=== PATIENT | female | born 1950 | race Two or more races ===

== ENCOUNTER → 2022-01-15 | Day surgery (SDC) | payer OTHER, MEDICAID ==
[~2022-01-15] VITALS: Ht 157.5 cm; Wt 106.1 kg
[~2022-01-15] MED LIST: ASPI1TAB20 PO; ATOR20TA PO; CANA100T PO; CHLO25TA2 PO; DOCU100T15 PO; FLUT100I IN; FURO20TA3 PO; FUROSEMIDE 20 MG/2 ML VIAL ONE; GLIP10TA9 PO; GLYCOPYRROLATE 0.2 MG/ML 1ML VIAL ONE; HYDR50TA15 PO; HYDROmorphone HCL 2 MG/ML VL IV PRN; IOHEXOL 300 MG/ML 100ML BOTTLE IJ ONE; LOSA-39 PO; METF-372 PO; METO25TA36 PO; METOCLOPRAMIDE HCL 5MG/ml INJ 2ml VIAL IV PRN; MIDAZOLAM HCL 2MG/2ML 2ml VIAL (1mg/ml) ONE; MORPHINE SULFATE 4 MG/ML SYR/VIAL IV PRN; NEOSTIGMINE 1 MG/ML INJ (10mg/10ML VIAL) ONE; NITR100C6 PO; ONDANSETRON HCL 4 MG/2 ML VIAL ONE; ROCURONIUM 10MG/ML 10ML VIAL IV ONE; SITA100T7 PO; SUGAMMADEX 200mg/2ml Vial (100MG/ML) IV ONE; [UNRECOGNIZED DRUG - CODE] OP; ceFAZolin 1GM/50ML 50 ML IV ONE; fentaNYL CITRATE 5 ML ONE
[2022-01-15 18:15] VITALS: BP 158/45
== END | disposition home or self-care (01) ==
LOC: SUR 09:59
PROVIDERS: ATTEND Urology
DX: N20.0 Calculus of kidney (principal); N28.89 Other specified disorders of kidney and ureter; I10 Essential (primary) hypertension; E11.9 Type 2 diabetes mellitus without complications; E78.5 Hyperlipidemia, unspecified; E66.01 Morbid (severe) obesity due to excess calories; Z20.822 Contact with and (suspected) exposure to COVID-19; Z68.41 Body mass index [BMI] 40.0-44.9, adult
CPT/HCPCS: 52353; 74018; 76000; 82962; 88300; J0690; J1940; J2250; J2405; J3010; Q9967; U0003